=== PATIENT | female | born 1940 | race African-American/Black ===

== ENCOUNTER 2020-09-09 09:04 | Emergency (ER) | payer OTHER ==
[~2020-09-09] VITALS: Ht 172.7 cm; Wt 91.0 kg
[2020-09-09 10:10] LABS: HEMATOCRIT. 49.5 % (36.0-48.0); HEMOGLOBIN. 15.8 g/dL (12.0-16.0); MEAN CORPUSCULAR HEMOGLOBIN 27.3 pg (28.0-32.0); MEAN CORPUSCULAR VOLUME 85.9 fL (81.0-99.0); MEAN PLATELET VOLUME 10.5 fl (7.4-10.4); PLATELET 246 x1000/uL (130-400); RED BLOOD CELL COUNT 5.76 mill/uL (4.2-5.4)
[2020-09-09 10:18] LABS: CHLORIDE 102 mEq/L (98-107)
[2020-09-09] MEDS ORDERED: SODIUM CHLORIDE 0.9% 1,000 ML IV NR (11:00)
[2020-09-09 11:42] LABS: CREATINE KINASE 2825 IU/L (26-192)
[2020-09-09 11:45] LABS: PLATELET ESTIMATE NORMAL
[2020-09-09] MEDS ORDERED: SODIUM CHLORIDE 0.9% 1,000 ML IV ONE (12:00)
[2020-09-09] MEDS ORDERED: SODIUM CHLORIDE 0.9% 500 ML IV ONE (15:00)
[2020-09-09] MEDS ORDERED: CEFTRIAXONE 1 G PREMIX 50 ML IV ONE (15:00)
[2020-09-09] MEDS ORDERED: VANCOMYCIN 1 G PREMIX 200 ML IV NR (15:00)
[2020-09-09 15:56] LABS: CLARITY URINE TURBID (CLEAR); COLOR URINE YELLOW (YELLOW); KETONES URINE 2+ (NEGATIVE); LEUKOCYTE ESTERASE URINE 1+ (NEGATIVE); NITRITE URINE NEGATIVE (NEGATIVE); OCCULT BLOOD URINE 1+ (NEGATIVE); PH URINE 5.5 (4.5-8.0); PROTEIN URINE 2+ (NEGATIVE); SPECIFIC GRAVITY URINE 1.025 (1.005-1.030)
[2020-09-09 18:20] VITALS: BP 159/82
== END 2020-09-09 18:23 | disposition short-term general hospital (02) ==
LOC: ER 09:04 → CANBEDREQ 20:59
DX: M62.82 Rhabdomyolysis (principal); A41.9 Sepsis, unspecified organism; N39.0 Urinary tract infection, site not specified
CPT/HCPCS: 36415; 71045; 80053; 81003; 82550; 82962; 83605; 84484; 85025; 87426; 93005; 96361; 96365; 96367; 99285; J0696; J3370; Z7610